=== PATIENT | female | born 1990 | race Caucasian/White ===

== ENCOUNTER 2017-07-24 15:02 | Outpatient (CLI) | payer OTHER ==
[2017-07-24 16:14] LABS: Appearance,Urine Clear (Clear); Bacteria,Urine Rare /hpf; Bilirubin,Urine Negative (Negative); Blood,Urine Trace (Negative); Color,Urine Yellow; Glucose,Urine (UA) Negative (Negative); Ketones,Urine Negative (Negative); Leukocyte Esterase,Urine Moderate (Negative); Mucus,Urine Few /hpf; Nitrite,Urine Negative (Negative); PH, Urine 5.5 (5.0-8.0); Protein,Urine Negative (Negative); RBC,Urine 2 /hpf (0-5); Specific Gravity,Urine 1.015 (1.001-1.035); Squamous Epithelial Cell,Urine 1 /hpf (0-4); Urobilinogen,Urine <2.0 mg/dL (<2.0); WBC,Urine 3 /hpf (0-5)
[2017-07-24 16:51] LABS: Basophils % (A) 0 %; Eosinophils # (A) 0.1 k/uL (0-0.7); Eosinophils % (A) 1 %; HCT 32.3 % (34.0-46.0); HGB 10.7 gm/dL (11.4-16.0); Lymphocytes # (A) 1.4 k/uL (1.0-4.8); Lymphocytes % (A) 18 %; MCH 30.9 pg (25.0-35.0); MCHC 33.1 g/dL (31.0-37.0); MCV 93.3 fL (80.0-100.0); Mean Platelet Volume 7.2; Monocytes # (A) 0.5 k/uL (0-1.0); Monocytes % (A) 6 %; Neutrophils # (A) 5.9 k/uL (1.3-7.7); Neutrophils % (A) 74 %; Platelet Count 238 k/uL (150-450); RBC 3.46 m/uL (3.80-5.40); RDW 13.7 % (11.5-15.5)
[2017-07-24 17:00] VITALS: BP 120/66; PULSE 104; RESP 18; TEMP 98.8
--- NOTE | 2017-07-24 17:00 | US ---
EXAMINATION TYPE: US OB >= 14 wk fetus DATE OF EXAM: 07/24/2017 COMPARISON: None CLINICAL HISTORY: no care No care, pt states vaginal bleeding on/off during pregnan cy, unsure of dates TECHNIQUE: Transabdominal (TA) GESTATIONAL AGE / DATING Physician Established: (29 weeks/6 days) EDC: 10/03/2017 Dates by LMP: Unknown Dates by First Scan: No prior Dates by Current Scan: (30 weeks/6 days) EDC: 09/26/2017 SURVEY IUP: Single PLACENTA: Anterior PREVIA: No Previa BRENNEN: 13.6 cm Normal CERVICAL LENGTH (transabdominal: norm > 3.0cm): 2.4 cm, TV not needed at this time per RN during exam BIOMETRY PRESENTATION: Vertex BPD: 8.1 cm 32 weeks / 3 days HC: 29.5 cm 32 weeks / 4 days AC: 26.4 cm 30 weeks / 4 days FL: 5.8 cm 30 weeks / 1 days ESTIMATED WEIGHT IN GRAMS: 1635 grams ESTIMATED WEIGHT IN LBS/OZ: 3 lbs. 10 oz. WEIGHT PERCENTAGE BASED ON ESTABLISHED DATES: 70% HC/AC: 1.12 Normal FL/AC: 22 Normal HEART RATE: 152 bpm RHYTHM: Normal Single, viable IUP/ Cervix measurement short, TV supplement not needed at this time per RN/ Incidenta l finding of dilated lateral ventricles during exam Results given to L&D at time of exam Single live intrauterine gestation is identified. There is no ultrasound evidence for placenta previa . Normal cephalad presentation to fetus is currently seen. Prominence of lateral ventricles is noted. Amniotic fluid index is within normal limits. Shortened cervix is present. biometry measuremen ts are concordant and felt within normal limits for early to mid third trimester gestation. IMPRESSION: As above
[2017-07-24 18:09] LABS: Amphetamine Screen,Urine Not Detected (NotDetected); Barbiturate Screen,Urine Not Detected (NotDetected); Benzodiazepines Screen,Urine Not Detected (NotDetected); Cocaine Screen,Urine Not Detected (NotDetected); Methadone Screen, Urine Not Detected (NotDetected); Opiate Screen,Urine Not Detected (NotDetected); Oxycodone Screen, Urine Not Detected (NotDetected); Phencyclidine Screen,Urine Not Detected (NotDetected); Tricyclic Antidepressant,Urine Not Detected (NotDetected); Urn Cannabinoid Scrn Not Detected (NotDetected)
--- NOTE | 2017-08-04 03:12 | P.MSEPDOC ---
Presenting Problems - Arrival Data Date of Arrival on Unit: 07/24/17 Time of Arrival on Unit: 15:15 Mode of Transport: Stretcher - Complaint OB-Reason for Admission/Chief Complaint: Observation/Evaluation Comment: Shortness of breath, bladder spasms Medical History - Information : 2 Para: 1 Term: 1 : 0 Abortions: Spontaneous or Elective: 0 Number of Living Children: 1 - Gestational Age Gestational Age by WILLA (wks/days): 29 Weeks and 6 Days - History Complications: No Care Review of Systems - Review of Systems Constitutional: No problems Breast: No problems ENT: No problems Cardiovascular: No problems Respiratory: No problems Gastrointestinal: No problems Genitourinary: No problems Musculoskeletal: No problems Neurological: No problems Skin: No problems Vital Signs - Temperature Temperature: 98.8 F Temperature Source: Temporal Artery Scan - Pulse Right Brachial Pulse Rate: 104 Pulse Assessment Method: Automatic Cuff - Respirations Respiratory Rate: 18 Oxygen Delivery Method: Room Air O2 Sat by Pulse Oximetry: 97 - Blood Pressure Right Arm Blood Pressure: 120/66 Blood Pressure Mean: 84 Blood Pressure Source: Automatic Cuff Medical Screen Scoring (Pre) - Cervical Exam Dilation: 0 cm = 0 Membranes: Intact - Uterine Contractions Frequency: N/A Duration: N/A Intensity: N/A - Maternal Vital Signs Maternal Temperature: N/A Maternal Blood Pressure: N/A Signs of Preeclampsia: N/A Maternal Respirations: N/A - Assessment Baseline FHR: 150 Heart Rate - NICHD Category: Category I (Normal) = 0 NST: Reactive Position: N/A Station: N/A - Total Score Total Score (Pre): 0 - Level of Risk Level of Risk: Low (0-5) Physician Notification (Pre) - Physician Notified Physician Notified Date: 07/24/17 Physician Notified Time: 15:15 Physician/Practitioner Notifed:: Dr. Plaza Spoke With: Dr. Plaza New Order Received: Yes Medical Screen Scoring (Post) - Cervical Exam Dilation: Exam Deferred Effacement: Exam Deferred - Uterine Contractions Frequency: N/A Duration: N/A Intensity: N/A - Maternal Vital Signs Maternal Temperature: N/A Signs of Preeclampsia: N/A Maternal Respirations: N/A - Maternal Trauma Maternal Trauma: N/A - Assessment Heart Rate: 145 Heart Rate - NICHD Category: Category I (Normal) = 0 NST: Reactive Position: N/A Station: N/A - Total Score Total Score (Post): 0 - Post Treatment Level of Risk Post Treatment Level of Risk: Low (0-5) Physician Notification (Post) - Physician Notified Physician Notified Date: 07/24/17 Physician Notified Time: 17:00 Physician/Practitioner Notified:: Dr. Plaza Spoke With: Dr. Plaza New Order Received: Yes - Notification Comment Comment: D/C home and follow up with high risk clinic in [place] Disposition - Disposition OB Disposition: Discharge to home Discharge Date: 07/24/17 Discharge Time: 17:15 I agree with the RN Medical Screening Exam: Yes Risk & Benefit of care provided described in d/c instruction: Yes Diagnosis: PELVIC AND PERINEAL PAIN
== END 2017-07-24 16:15 | disposition home or self-care (01) ==
LOC: FBPOP 15:02
PROVIDERS: ATTEND Obstetrics & Gynecology
DX: O99.89 Other specified diseases and conditions complicating pregnancy, childbirth and the puerperium (principal); R10.2 Pelvic and perineal pain; R06.02 Shortness of breath; N32.89 Other specified disorders of bladder; Z3A.29 29 weeks gestation of pregnancy
CPT/HCPCS: 59025; 86900; 86901; 85025; 86850; 81001; 80306; 76805; G0463; 99213

== ENCOUNTER 2017-09-27 12:55 | Inpatient (IN) | payer OTHER ==
[2017-09-27] MEDS ORDERED: TERBUTALINE 1 MG/ML VIAL SQ PRN (13:40)
[2017-09-27] MEDS ORDERED: METHYLERGONOVINE 0.2 MG/ML 1 ML AMP IM PRN (13:40)
[2017-09-27] MEDS ORDERED: LIDOCAINE 1% (PF) 10 MG/ML (30 ML SDV) SQ PRN (13:40)
[2017-09-27] MEDS ORDERED: OXYTOCIN 10 UNIT/ML 1 ML VIAL IM PRN (13:40)
[2017-09-27] MEDS ORDERED: CARBOPROST TROMETHAMINE 250 MCG/ML 1 ML AMP IM PRN (13:40)
[2017-09-27] MEDS: LACTATED RINGERS 1,000 ML IV SCH ×2 (13:45→15:32)
[2017-09-27] MEDS ORDERED: BUTORPHANOL 1 MG/ML 1 ML VIAL IV PRN (13:51)
--- NOTE | 2017-09-27 13:58 | P.HPOB ---
History of Present Illness H&P Date: 09/27/17 Chief Complaint: 40 and one sevenths weeks, labor The patient is a 27-year-old 2 para 1001 admitted at 40 and one sevenths weeks as determined by a 29 week ultrasound. She is admitted in early active labor with all signs reassuring. She was checked in the office yesterday which time her cervix is 1-2 cm, thick, high, and posterior. She presents to labor and delivery today with regular contractions every 3-4 minutes and cervical exam showing 37 m of dilation with 60-70% effacement and the vertex in presentation at -1-2 station. She does carry a history of late presentation to our office having had some care in [place] before returning to this area where she had some scattered appointments across [facility] until presentation to our office at 29 weeks. Group B strep status is negative. Obstetrical history: 2 para 1001 with 1 term vaginal delivery without complications. Current statistics are listed above. EDC of 2017 was determined by a 29 week ultrasound. Laboratory workup demonstrates a blood type of O+ with a negative antibody screen. Rubella status is immune. The remainder of the laboratory workup was within normal limits. One hour Glucola was normal and group B strep status is negative. Gynecologic history: Unremarkable with no history of any infections to include STDs. Review of Systems Review of systems is confined to history of present illness. Past Medical History Past Medical History: GERD/Reflux Additional Past Medical History / Comment(s): Obstetric history: This is her first , she's had good care with me since 18 weeks gestation. Her EDC is by a 16 week ultrasound. Blood type was O+, antibodies negative, rubella immune, RPR nonreactive, hepatitis B negative, HIV nonreactive, toxoplasmosis negative. She had normal 1 hour glucose tolerance test. Group beta strep negative. History of Any Multi-Drug Resistant Organisms: None Reported Past Surgical History: No Surgical Hx Reported Past Anesthesia/Blood Transfusion Reactions: No Reported Reaction Smoking Status: Never smoker Medications and Allergies Allergies Allergy/AdvReac Type Severity Reaction Status Date / Time Penicillins Allergy Intermediate Abdominal Verified 09/27/17 13:03 Pain diphenhydramine Allergy Anaphylaxis Verified 09/27/17 13:03 [From Benadryl] loratadine Allergy Rash/Hives Verified 09/27/17 13:03 metronidazole [From Flagyl] Allergy Anaphylaxis Verified 09/27/17 13:03 Exam - Vital Signs Vital signs: Intake and Output 09/26/17 09/27/17 09/27/17 22:59 06:59 14:59 Other: Weight 66.678 kg Patient Weight 09/28/17 06:59 Weight 66.678 kg In general, this is a well-developed, well-nourished white female in no acute distress. Her heart has a regular rhythm and rate without murmur. Her lungs are clear to auscultation bilaterally in all bennett. Her abdomen is gravid, nondistended, has normal active bowel sounds, soft, nontender, and without any palpable masses aside from uterine fundus. Her extremities are without any cyanosis, clubbing, or significant edema and are nontender to palpation bilaterally. Digital cervical examination done traits her cervix to be 3+ centimeters dilated, approximately 60-70% effaced, with the vertex in presentation at -1-2 station. Artificial rupture of membranes will be carried out shortly. Assessment and Plan (1) Normal labor Current Visit: No Status: Acute Code(s): O80 - ENCOUNTER FOR FULL-TERM UNCOMPLICATED DELIVERY SNOMED Code(s): 21757642 Plan: The patient is admitted for active management of labor. She'll shortly undergo artificial rupture of membranes breech she will continue to have close maternal and surveillance and expectant management will be practiced. She is a good candidate for either IV or epidural analgesia, whichever she may choose.
[2017-09-27 14:12] LABS: Basophils % (A) 0 %; Eosinophils # (A) 0.1 k/uL (0-0.7); Eosinophils % (A) 1 %; HGB 12.6 gm/dL (11.4-16.0); Lymphocytes % (A) 18 %; MCH 30.2 pg (25.0-35.0); MCHC 32.4 g/dL (31.0-37.0); MCV 93.3 fL (80.0-100.0); Mean Platelet Volume 7.1; Monocytes # (A) 0.5 k/uL (0-1.0); Monocytes % (A) 5 %; Neutrophils # (A) 8.1 k/uL (1.3-7.7); Neutrophils % (A) 73 %; Platelet Count 256 k/uL (150-450); RBC 4.18 m/uL (3.80-5.40); RDW 14.9 % (11.5-15.5)
[2017-09-27 14:40] VITALS: BMI 25.2
[2017-09-27] MEDS ORDERED: fentaNYL (PF) 50 MCG/ML 5 ML AMP ONE (15:18)
[2017-09-27] MEDS ORDERED: SODIUM CHLORIDE 0.9% 100 ML BAG ONE (15:18)
[2017-09-27] MEDS ORDERED: BUPIVACAINE (PF) 0.25% 30 ML VIAL ONE (15:18)
[2017-09-27] MEDS ORDERED: BUPIVACAINE (PF) 0.25% 25 ML, fentaNYL (PF) 200 MCG in SODIUM CHLORIDE 0.9% 71 ML EPIDURAL ONE (15:34)
[2017-09-27] MEDS ORDERED: OXYTOCIN 20 UNITS/1000 ML NS 1,000 ML IV SCH ×2 (18:41→19:00)
[2017-09-27] MEDS ORDERED: HYDROCORTISONE 2.5% RECTAL CREAM 30 GM TUBE RECTAL PRN (18:49)
[2017-09-27] MEDS ORDERED: LANOLIN CREAM 5 GM TUBE TOPICAL PRN (18:49)
[2017-09-27] MEDS ORDERED: WITCH HAZEL 1 EACH MED..PAD TOPICAL PRN (18:49)
[2017-09-27] MEDS ORDERED: ZOLPIDEM 5 MG TAB PO PRN (18:49)
[2017-09-27] MEDS ORDERED: Acetaminophen-Codeine 300-30mg TAB PO PRN (18:49)
[2017-09-27] MEDS ORDERED: SIMETHICONE 80 MG CHEWABLE PO PRN (18:49)
--- NOTE | 2017-09-27 18:49 | P.PROBDLV ---
Vaginal Delivery Note - . Vaginal Delivery Note: Findings: Male infant in the vertex left occiput anterior position with Apgars of 8 at 1 minute and 9 at 5 minutes weighing 8 lbs. 0 oz., 3625 g. Intact, calcified three-vessel cord placenta. Second-degree midline episiotomy. EBL approximately 200 mL's. Delivery summary: This is a 27-year-old 2 para 1001 woman who presented at 40 and one sevenths weeks gestation in spontaneous active labor. The time of initial presentation she was 3+ centimeters dilated and regularly john paul. She received an epidural anesthetic and had spontaneous rupture of membranes. Well overall her heart tones were reassuring in the first stage she did have an episode of bradycardia immediately following spontaneous rupture. This was managed conservatively. She reached complete cervical dilation by the approximately 1800 and did have urge to push. The 's vertex was in the 1+ station with commencement of pushing. She did have some deep variable heart rate decelerations however maternal effort was excellent and the head descended rapidly. She was therefore repositioned, prepped and draped in the dorsal modified lithotomy position. Reached the heart tones were in the 50-60 bpm therefore a second-degree midline episiotomy was cut and the 's head delivered with the next maternal effort from the left occiput anterior position. The anterior followed by the posterior shoulders were rapidly delivered and the infant was delivered onto the field. The nose and mouth were bulb suctioned and the was placed on the maternal abdomen. The cord was clamped and cut. Apgars were 8 at 1 minute and 9 at 5 minutes. The perineum was inspected and a second-degree laceration was noted. This was infused with lidocaine and repaired with 3-0 Vicryl suture in the usual fashion. The uterus was massaged and an intact, three-vessel cord placenta was expressed after approximately 11 minute third stage of labor. The uterus was massaged and was noted to be very firm at the level of the umbilicus. The rest the vagina and cervix were inspected and no further lacerations were noted. All counts were correct. Both mother and were doing well post delivery in the room.
[2017-09-27] MEDS: IBUPROFEN 600 MG TAB PO PRN (19:30)
[2017-09-27] MEDS: ACETAMINOPHEN TAB 325 MG TAB PO PRN (20:58)
[2017-09-27] MEDS: SENNOSIDES-DOCUSATE SODIUM 1 EACH TAB PO SCH (20:58)
[2017-09-28] MEDS: IBUPROFEN 600 MG TAB PO PRN ×4 (01:26→21:00)
[2017-09-28] MEDS: ACETAMINOPHEN TAB 325 MG TAB PO PRN (02:36)
[2017-09-28] MEDS: SENNOSIDES-DOCUSATE SODIUM 1 EACH TAB PO SCH ×2 (08:12→21:01)
--- NOTE | 2017-09-28 10:41 | P.PNOBGVD ---
Subjective - Subjective Principal diagnosis: Status post vaginal delivery Interval history: Moderate lochia. Ambulating and voiding without difficulty. Tolerating a general diet. Patient reports: Reports appetite normal, Reports voiding normally, Reports pain well controlled, Reports ambulating normally, Denies nauseated [place]: doing well, bottle feeding Objective - Latest Vital Signs Latest vital signs: Vital Signs Temp Pulse Resp BP Pulse Ox 09/28/17 08:00 98.2 F 82 16 106/72 09/28/17 04:00 97.9 F 84 16 101/63 95 09/28/17 00:00 98.3 F 90 16 111/62 95 09/27/17 20:47 98.9 F 87 16 117/71 97 09/27/17 20:17 98.7 F 76 16 119/72 09/27/17 20:00 98.7 F 76 16 119/72 09/27/17 19:47 98.4 F 78 16 120/77 09/27/17 19:32 98.4 F 96 16 125/82 09/27/17 19:17 98.8 F 71 16 122/70 09/27/17 19:02 99.0 F 83 16 131/79 97 09/27/17 18:47 86 16 121/84 09/27/17 13:03 97.3 F L 73 16 125/76 Intake and Output 09/27/17 09/28/17 09/28/17 22:59 06:59 14:59 Intake Total 1000 Balance 1000 Intake: IV 1000 Oxytocin 20 Units/1000 ml 1000 Ns 1,000 ml @ Per Protocol IV .Q0M [facility] Rx#: [id number] Other: Voiding Method Toilet Toilet # Voids 2 1 # Bowel Movements 1 - Exam Extremities: Present: normal. Absent: edema Abdomen: Present: normal appearance, soft. Absent: tenderness Uterus: Present: normal, firm. Absent: tenderness - Labs Labs: Abnormal Lab Results - Last 24 Hours (Table) 09/27/17 Range/Units 14:00 WBC 11.0 H (3.8-10.6) k/uL Neutrophils # 8.1 H (1.3-7.7) k/uL Assessment and Plan (1) Normal labor Current Visit: No Status: Acute Code(s): O80 - ENCOUNTER FOR FULL-TERM UNCOMPLICATED DELIVERY SNOMED Code(s): 95057316 (2) Normal spontaneous vaginal delivery Current Visit: Yes Status: Acute Code(s): O80 - ENCOUNTER FOR FULL-TERM UNCOMPLICATED DELIVERY SNOMED Code(s): 70791904 (3) Perineal laceration with delivery, second degree Current Visit: Yes Status: Acute Code(s): O70.1 - SECOND DEGREE PERINEAL LACERATION DURING DELIVERY SNOMED Code(s): 0697665 (4) Spontaneous onset of labor Current Visit: Yes Status: Acute Code(s): IPA2847 - SNOMED Code(s): 15879956 (5) Spontaneous rupture of membranes Current Visit: Yes Status: Acute Code(s): UJT0539 - SNOMED Code(s): 328432581 Plan: day 1 status post normal spontaneous vaginal delivery. Routine care. Anticipate discharge home tomorrow.
[2017-09-29] MEDS: IBUPROFEN 600 MG TAB PO PRN ×2 (02:08→07:43)
[2017-09-29 08:19] VITALS: BP 119/73; PULSE 78; RESP 16; TEMP 97.7
[2017-09-29] MEDS: SENNOSIDES-DOCUSATE SODIUM 1 EACH TAB PO SCH (09:27)
--- NOTE | 2017-09-29 11:09 | P.DS ---
Providers Date of admission: 09/27/17 13:46 Expected date of discharge: 09/29/17 Attending physician: Demetrio Brennan - Discharge Diagnosis(es) (1) Normal labor Current Visit: No Status: Acute (2) Normal spontaneous vaginal delivery Current Visit: Yes Status: Acute (3) Perineal laceration with delivery, second degree Current Visit: Yes Status: Acute (4) Spontaneous onset of labor Current Visit: Yes Status: Acute (5) Spontaneous rupture of membranes Current Visit: Yes Status: Acute Hospital Course: This is a 27-year-old 2 now para 2 woman who presented at 40 and one sevenths weeks gestation in spontaneous active labor. Following admission she received an epidural anesthetic. She had artificial rupture of membranes. She progressed to complete cervical dilation. In the second stage of labor she had did have deep variable heart rate decelerations and a midline episiotomy was cut at to facilitate more rapid delivery. She was delivered of a liveborn female infant weighing 8 lbs. 0 oz. with Apgars of 8 at 1 minute and 9 at 5 minutes. The patient's course was unremarkable. She chose not to breast-feed. She had normal vital signs, minimal lochia, was able to ambulate and void without difficulty and tolerating a general diet. She was therefore discharged home on day #2 with routine instructions for care and follow-up. Patient Condition at Discharge: Good Plan - Discharge Summary Discharge Rx Participant: Yes New Discharge Prescriptions: New Acetaminophen Tab [Tylenol] 650 mg PO Q4HR PRN #30 tab PRN Reason: Mild Pain Or Fever >= 100.5 Ibuprofen [Motrin] 600 mg PO Q6HR PRN #30 tab PRN Reason: Mild Pain Or Fever >= 100.5 Discharge Medication List Acetaminophen Tab [Tylenol] 650 mg PO Q4HR PRN #30 tab 09/29/17 [Rx] Ibuprofen [Motrin] 600 mg PO Q6HR PRN #30 tab 09/29/17 [Rx] Follow up Appointment(s)/Referral(s): Demetrio Brennan MD [STAFF PHYSICIAN] - 6 Weeks Activity/Diet/Wound Care/Special Instructions: Follow-up in the office in 6 weeks . Call with any concerning signs or symptoms including heavy vaginal bleeding, severe abdominal pain, fever greater than 101, swelling or redness of the lower extremities, foul vaginal discharge, or signs of depression. Nothing in the vagina for 6 weeks after delivery, specifically no intercourse. Discharge Disposition: HOME SELF-CARE
== END 2017-09-29 12:25 | disposition home or self-care (01) | DRG 775 ==
LOC: FBPOP 12:55 → 4FBP 13:46
PROVIDERS: ADMIT Obstetrics & Gynecology; ATTEND Obstetrics & Gynecology
PROC: 10E0XZZ Delivery of Products of Conception, External Approach (ICD-10-PCS; principal; 2017-09-27)
PROC: 0KQM0ZZ Repair Perineum Muscle, Open Approach (ICD-10-PCS; 2017-09-27)
PROC: 0W8NXZZ Division of Female Perineum, External Approach (ICD-10-PCS; 2017-09-27)
DX: O99.62 Diseases of the digestive system complicating childbirth (principal); R00.1 Bradycardia, unspecified; K21.9 Gastro-esophageal reflux disease without esophagitis; O76 Abnormality in fetal heart rate and rhythm complicating labor and delivery; O70.1 Second degree perineal laceration during delivery; O75.89 Other specified complications of labor and delivery; Z37.0 Single live birth; Z3A.40 40 weeks gestation of pregnancy; Z88.1 Allergy status to other antibiotic agents; Z88.0 Allergy status to penicillin; Z88.8 Allergy status to other drugs, medicaments and biological substances
CPT/HCPCS: 59025; 85025; 88307; 99213

== ENCOUNTER 2017-11-05 22:54 | Emergency (ER) | payer OTHER ==
[2017-11-06 00:06] LABS: Appearance,Urine Cloudy (Clear); Bilirubin,Urine 1+ (Negative); Blood,Urine Moderate (Negative); Calcium Oxalate Crystals,Urine Few /hpf; Color,Urine Yellow; Glucose,Urine (UA) Negative (Negative); Ketones,Urine Trace (Negative); Leukocyte Esterase,Urine Large (Negative); Mucus,Urine Many /hpf; Nitrite,Urine Negative (Negative); PH, Urine 5.5 (5.0-8.0); Protein,Urine 1+ (Negative); RBC,Urine 6 /hpf (0-5); Specific Gravity,Urine 1.029 (1.001-1.035); Squamous Epithelial Cell,Urine 12 /hpf (0-4); WBC,Urine 121 /hpf (0-5)
[2017-11-06] MEDS ORDERED: HYDROcodone/APAP 5-325MG 1 EACH TAB PO STA (01:29)
[2017-11-06] MEDS ORDERED: SULFAMETH-TMP DS STARTER PACK 2 TAB BTL PO STA (01:29)
--- NOTE | 2017-11-06 01:34 | ED ---
General Adult HPI - General Chief complaint: Recheck/Abnormal Lab/Rx Stated complaint: Dysuria, vaginal cyst Time Seen by Provider: 11/06/17 00:50 Source: patient, RN notes reviewed Mode of arrival: ambulatory Limitations: no limitations - History of Present Illness Initial comments: 27-year-old female presented emergency from for swelling and possible infection to her right side of her labia. Patient states started approximately week ago. She states is very painful, and drainage. She did have a vaginal delivery 6 weeks ago. She has not follow-up appointment tomorrow. Patient denies any fevers or chills. Patient states that she also has some dysuria. Patient has chronic pain secondary fibromyalgia. Patient denies any nausea vomiting diarrhea constipation. Patient has no upper abdominal pain. She states the vaginal bleeding has stopped from her vaginal delivery. - Related Data Previous Rx's Medication Instructions Recorded Acetaminophen Tab [Tylenol] 650 mg PO Q4HR PRN #30 tab 09/29/17 Ibuprofen [Motrin] 600 mg PO Q6HR PRN #30 tab 09/29/17 Hydrocodone/Acetaminophen [[place] 1 tab PO Q6HR PRN #15 tab 11/06/17 5-325] Sulfamethox-Tmp 800-160Mg [Bactrim 1 each PO Q12HR #20 tab 11/06/17 Ds] Allergies Allergy/AdvReac Type Severity Reaction Status Date / Time Penicillins Allergy Intermediate Abdominal Verified 11/05/17 23:07 Pain diphenhydramine Allergy Anaphylaxis Verified 11/05/17 23:07 [From Benadryl] loratadine Allergy Rash/Hives Verified 11/05/17 23:07 metronidazole [From Flagyl] Allergy Anaphylaxis Verified 11/05/17 23:07 Review of Systems ROS Statement: Those systems with pertinent positive or pertinent negative responses have been documented in the HPI. ROS Other: All systems not noted in ROS Statement are negative. Past Medical History Past Medical History: Fibromyalgia, GERD/Reflux Additional Past Medical History / Comment(s): Obstetric history: This is her first , she's had good care with me since 18 weeks gestation. Her EDC is by a 16 week ultrasound. Blood type was O+, antibodies negative, rubella immune, RPR nonreactive, hepatitis B negative, HIV nonreactive, toxoplasmosis negative. She had normal 1 hour glucose tolerance test. Group beta strep negative. History of Any Multi-Drug Resistant Organisms: None Reported Past Surgical History: No Surgical Hx Reported Past Anesthesia/Blood Transfusion Reactions: No Reported Reaction Past Psychological History: Anxiety Smoking Status: Never smoker Past Alcohol Use History: None Reported Past Drug Use History: None Reported - Past Family History Mother Family Medical History: No Reported History General Exam Limitations: no limitations General appearance: alert, in no apparent distress Head exam: Present: atraumatic, normocephalic, normal inspection Eye exam: Present: normal appearance, PERRL, EOMI. Absent: scleral icterus, conjunctival injection, periorbital swelling Respiratory exam: Present: normal lung sounds bilaterally. Absent: respiratory distress, wheezes, rales, rhonchi, stridor Cardiovascular Exam: Present: regular rate, normal rhythm, normal heart sounds. Absent: systolic murmur, diastolic murmur, rubs, gallop, clicks GI/Abdominal exam: Present: soft, normal bowel sounds. Absent: distended, tenderness, guarding, rebound, rigid External exam: Present: other (Exam performed with Lauren LOPEZ). Absent: normal external exam (Right leg is, swollen, large abscess that is draining at this time tenderness with palpation) Course Vital Signs 11/05/17 23:00 Temperature 98.7 F Pulse Rate 112 H Respiratory 20 Rate Blood Pressure 141/102 O2 Sat by Pulse 97 Oximetry Medical Decision Making - Medical Decision Making 19-year-old female presented from for labial abscess. Patient will be started on Bactrim is currently draining and she has a follow-up appointment with OB/ [employer] tomorrow. Patient was started on Bactrim for UTI and abscess. Return parameters were discussed. - Lab Data Lab Results 11/05/17 Range/Units 23:47 Urine Color Yellow Urine Appearance Cloudy H (Clear) Urine pH 5.5 (5.0-8.0) Ur Specific [place] 1.029 (1.001-1.035) Urine Protein 1+ H (Negative) Urine Glucose (UA) Negative (Negative) Urine Ketones Trace H (Negative) Urine Blood Moderate H (Negative) Urine Nitrite Negative (Negative) Urine Bilirubin 1+ H (Negative) Urine Urobilinogen 3.0 (<2.0) mg/dL Ur Leukocyte Esterase Large H (Negative) Urine RBC 6 H (0-5) /hpf Urine WBC 121 H (0-5) /hpf Ur Squamous Epith Cells 12 H (0-4) /hpf Calcium Oxalate Crystal Few H (None) /hpf Urine Mucus Many H (None) /hpf Disposition Clinical Impression: Labial abscess, UTI (urinary tract infection) Disposition: HOME SELF-CARE Condition: Stable Instructions: Abscess (ED) Additional Instructions: Please return to the Emergency Department if symptoms worsen or any other concerns. Prescriptions: Hydrocodone/Acetaminophen [[place] 5-325] 1 tab PO Q6HR PRN #15 tab PRN Reason: Pain Sulfamethox-Tmp 800-160Mg [Bactrim Ds] 1 each PO Q12HR #20 tab Referrals: Bhumika Marcano MD [Primary Care Provider] - 1-2 days Time of Disposition: 01:33
[2017-11-06 01:45] VITALS: BP 103/50; PULSE 87; RESP 18; TEMP 97.8
== END 2017-11-06 01:44 | disposition home or self-care (01) ==
LOC: EC 22:54
DX: N39.0 Urinary tract infection, site not specified (principal); N76.4 Abscess of vulva; Z88.0 Allergy status to penicillin; Z86.19 Personal history of other infectious and parasitic diseases; Z88.1 Allergy status to other antibiotic agents; Z88.8 Allergy status to other drugs, medicaments and biological substances
CPT/HCPCS: 81001; 87086; 93005; 99283

== ENCOUNTER → 2018-01-15 | Outpatient (CLI) | payer OTHER ==
[2018-01-15 14:20] LABS: Basophils % (A) 0 %; Eosinophils # (A) 0.1 k/uL (0-0.7); Eosinophils % (A) 2 %; HCT 37.5 % (34.0-46.0); HGB 12.5 gm/dL (11.4-16.0); Lymphocytes # (A) 1.8 k/uL (1.0-4.8); Lymphocytes % (A) 33 %; MCH 29.7 pg (25.0-35.0); MCHC 33.4 g/dL (31.0-37.0); MCV 89.1 fL (80.0-100.0); Mean Platelet Volume 6.9; Monocytes # (A) 0.4 k/uL (0-1.0); Monocytes % (A) 7 %; Neutrophils % (A) 55 %; Platelet Count 257 k/uL (150-450); RBC 4.21 m/uL (3.80-5.40); RDW 13.3 % (11.5-15.5); WBC 5.4 k/uL (3.8-10.6)
[2018-01-15 15:01] LABS: ALT 27 U/L (9-52); AST 24 U/L (14-36); Albumin 3.8 g/dL (3.5-5.0); Alkaline Phosphatase 53 U/L (38-126); Anion Gap 9 mmol/L; Blood Urea Nitrogen 13 mg/dL (7-17); Calcium 9.1 mg/dL (8.4-10.2); Carbon Dioxide 26 mmol/L (22-30); Chloride 104 mmol/L (98-107); Cholesterol 151 mg/dL (<200); Glucose 79 mg/dL (74-99); HDL Cholesterol 65 mg/dL (40-60); LDL Cholesterol,Calculated 71 mg/dL (0-99); Sodium 139 mmol/L (137-145); Total Bilirubin 0.4 mg/dL (0.2-1.3); Total Protein 6.5 g/dL (6.3-8.2); Triglycerides 73 mg/dL (<150)
== END | disposition home or self-care (01) ==
LOC: LABWHC1 13:14
PROVIDERS: ATTEND Internal Medicine
DX: Z00.00 Encounter for general adult medical examination without abnormal findings (principal)
CPT/HCPCS: 36415; 80053; 80061; 84443; 85025

== ENCOUNTER 2018-07-21 13:36 | Emergency (ER) | payer OTHER ==
[2018-07-21 14:03] VITALS: PULSE 84; RESP 18; TEMP 98
[2018-07-21] MEDS ORDERED: SODIUM CHLORIDE 0.9% 1,000 ML IV STA (14:25)
--- NOTE | 2018-07-21 14:46 | ED ---
General Adult HPI - General Chief complaint: Recheck/Abnormal Lab/Rx Stated complaint: body pain Time Seen by Provider: 07/21/18 13:45 Source: patient, RN notes reviewed Mode of arrival: ambulatory Limitations: no limitations - History of Present Illness Initial comments: Patient's a 28-year-old female who presents emergency room today by EMS, with multiple complaints. Patient does admit that since September 2017 after giving to her son she's been having multiple problems. She states that she's had some abdominal pains in the upper abdomen area she states that she's had overall weakness. Does admit to some numbness tingling sensation throughout her entire body. Patient also admits to some pain in her lower legs behind both knees. Patient states that all the symptoms been present for months. She states she follow-up the family doctor did not take her seriously. She states she's following up with a new family physician. She states last night before going to bed she was concerned because she felt like she was not going to wake up in the morning. She also admits to cough congestion. Patient states that when she woke up in the morning she was grateful but she called EMS to come here to the emergency room. She states that all the symptoms have been present for multiple months. Denies any specific new issue today. Patient denies any recent fever, chills, shortness of breath, chest pain, back pain, abdominal pain , nausea or vomiting, dysuria or hematuria, constipation or diarrhea, headaches or visual changes, or any other complaints. - Related Data Previous Rx's Medication Instructions Recorded Acetaminophen Tab [Tylenol] 650 mg PO Q4HR PRN #30 tab 09/29/17 Ibuprofen [Motrin] 600 mg PO Q6HR PRN #30 tab 09/29/17 Hydrocodone/Acetaminophen [[place] 1 tab PO Q6HR PRN #15 tab 11/06/17 5-325] Sulfamethox-Tmp 800-160Mg [Bactrim 1 each PO Q12HR #20 tab 11/06/17 Ds] Azithromycin [Zithromax Z-pack] 0 mg PO DIRECTED #6 tab 07/21/18 Allergies Allergy/AdvReac Type Severity Reaction Status Date / Time Penicillins Allergy Intermediate Abdominal Verified 11/05/17 23:07 Pain diphenhydramine Allergy Anaphylaxis Verified 11/05/17 23:07 [From Benadryl] loratadine Allergy Rash/Hives Verified 11/05/17 23:07 metronidazole [From Flagyl] Allergy Anaphylaxis Verified 11/05/17 23:07 Review of Systems ROS Statement: Those systems with pertinent positive or pertinent negative responses have been documented in the HPI. ROS Other: All systems not noted in ROS Statement are negative. Past Medical History Past Medical History: Fibromyalgia, GERD/Reflux, Thyroid Disorder Additional Past Medical History / Comment(s): Obstetric history: This is her first , she's had good care with me since 18 weeks gestation. Her EDC is by a 16 week ultrasound. Blood type was O+, antibodies negative, rubella immune, RPR nonreactive, hepatitis B negative, HIV nonreactive, toxoplasmosis negative. She had normal 1 hour glucose tolerance test. Group beta strep negative. graves disease anemia History of Any Multi-Drug Resistant Organisms: None Reported Past Surgical History: No Surgical Hx Reported Past Anesthesia/Blood Transfusion Reactions: No Reported Reaction Past Psychological History: Anxiety Smoking Status: Never smoker Past Alcohol Use History: None Reported Past Drug Use History: None Reported - Past Family History Mother Family Medical History: No Reported History General Exam Limitations: no limitations Course Vital Signs 07/21/18 13:58 Temperature 98.0 F Pulse Rate 84 Respiratory 18 Rate Blood Pressure 106/64 O2 Sat by Pulse 98 Oximetry EKG Findings - EKG Comments: EKG Findings:: EKG performed at 1440: Shows normal sinus rhythm at 88 bpm. ME interval is 120. QRS 84. QT/QTC 374/452. No acute ST changes. Medical Decision Making - Medical Decision Making Patient reexamined at this time shows no signs of distress. Patient's ultrasound of the legs bilaterally was negative for any evidence of DVT. Patient's labs been reviewed and are unremarkable. Patient does admit that she' s been having symptoms for several months has seen the family doctor. He is trying to follow-up. Patient's chest x-ray was obtained due to recent cough congestion does show possible early pneumonia. Patient will be given dose of antibiotics in the emergency room he continued on treatment at home off oral antibiotic. She is advised follow-up the family doctor the next 2 days. Advised returning if symptoms increase or worsen. - Lab Data Result diagrams: 07/21/18 14:10 07/21/18 14:10 Lab Results 1207/21/18 07/21/18 Range/Units 10:10 10:10 14:10 WBC (3.8-10.6) k/uL RBC (3.80-5.40) m/uL Hgb (11.4-16.0) gm/dL Hct (34.0-46.0) % MCV (80.0-100.0) fL MCH (25.0-35.0) pg MCHC (31.0-37.0) g/dL RDW (11.5-15.5) % Plt Count (150-450) k/uL Neutrophils % % Lymphocytes % % Monocytes % % Eosinophils % % Basophils % % Neutrophils # (1.3-7.7) k/uL Lymphocytes # (1.0-4.8) k/uL Monocytes # (0-1.0) k/uL Eosinophils # (0-0.7) k/uL Basophils # (0-0.2) k/uL Sodium (137-145) mmol/L Potassium (3.5-5.1) mmol/L Chloride (98-107) mmol/L Carbon Dioxide (22-30) mmol/L Anion Gap mmol/L BUN (7-17) mg/dL Creatinine (0.52-1.04) mg/dL Est GFR (CKD-EPI)AfAm (>60 ml/min/1.73 sqM) Est GFR (CKD-EPI)NonAf (>60 ml/min/1.73 sqM) Glucose (74-99) mg/dL Calcium (8.4-10.2) mg/dL Total Bilirubin (0.2-1.3) mg/dL AST (14-36) U/L ALT (9-52) U/L Alkaline Phosphatase (38-126) U/L Total Protein (6.3-8.2) g/dL Albumin (3.5-5.0) g/dL Amylase (30-110) U/L Lipase (23-300) U/L TSH 0.821 (0.465-4.680) mIU/L Urine Color Yellow Urine Appearance Clear (Clear) Urine pH 6.0 (5.0-8.0) Ur Specific [place] 1.021 (1.001-1.035) Urine Protein Trace H (Negative) Urine Glucose (UA) Negative (Negative) Urine Ketones Negative (Negative) Urine Blood Negative (Negative) Urine Nitrite Negative (Negative) Urine Bilirubin Negative (Negative) Urine Urobilinogen <2.0 (<2.0) mg/dL Ur Leukocyte Esterase Trace H (Negative) Urine RBC 1 (0-5) /hpf Urine WBC 2 (0-5) /hpf Ur Squamous Epith Cells 2 (0-4) /hpf Amorphous Sediment Rare H (None) /hpf Hyaline Casts 1 (0-2) /lpf Urine Mucus Many H (None) /hpf Urine HCG, Qual Not Detected (Not Detectd) 07/21/18 07/21/18 Range/Units 14:10 14:10 WBC 4.0 (3.8-10.6) k/uL RBC 4.06 (3.80-5.40) m/uL Hgb 11.8 (11.4-16.0) gm/dL Hct 35.6 (34.0-46.0) % MCV 87.7 (80.0-100.0) fL MCH 29.2 (25.0-35.0) pg MCHC 33.3 (31.0-37.0) g/dL RDW 13.7 (11.5-15.5) % Plt Count 198 (150-450) k/uL Neutrophils % 57 % Lymphocytes % 34 % Monocytes % 5 % Eosinophils % 2 % Basophils % 0 % Neutrophils # 2.3 (1.3-7.7) k/uL Lymphocytes # 1.4 (1.0-4.8) k/uL Monocytes # 0.2 (0-1.0) k/uL Eosinophils # 0.1 (0-0.7) k/uL Basophils # 0.0 (0-0.2) k/uL Sodium 141 (137-145) mmol/L Potassium 3.9 (3.5-5.1) mmol/L Chloride 114 H (98-107) mmol/L Carbon Dioxide 22 (22-30) mmol/L Anion Gap 5 mmol/L BUN 12 (7-17) mg/dL Creatinine 0.67 (0.52-1.04) mg/dL Est GFR (CKD-EPI)AfAm >90 (>60 ml/min/1.73 sqM) Est GFR (CKD-EPI)NonAf >90 (>60 ml/min/1.73 sqM) Glucose 85 (74-99) mg/dL Calcium 8.6 (8.4-10.2) mg/dL Total Bilirubin 0.4 (0.2-1.3) mg/dL AST 18 (14-36) U/L ALT 22 (9-52) U/L Alkaline Phosphatase 47 (38-126) U/L Total Protein 6.5 (6.3-8.2) g/dL Albumin 3.7 (3.5-5.0) g/dL Amylase 69 (30-110) U/L Lipase 75 (23-300) U/L TSH (0.465-4.680) mIU/L Urine Color Urine Appearance (Clear) Urine pH (5.0-8.0) Ur Specific [place] (1.001-1.035) Urine Protein (Negative) Urine Glucose (UA) (Negative) Urine Ketones (Negative) Urine Blood (Negative) Urine Nitrite (Negative) Urine Bilirubin (Negative) Urine Urobilinogen (<2.0) mg/dL Ur Leukocyte Esterase (Negative) Urine RBC (0-5) /hpf Urine WBC (0-5) /hpf Ur Squamous Epith Cells (0-4) /hpf Amorphous Sediment (None) /hpf Hyaline Casts (0-2) /lpf Urine Mucus (None) /hpf Urine HCG, Qual (Not Detectd) Disposition Clinical Impression: CAP (community acquired pneumonia) Disposition: HOME SELF-CARE Condition: Good Instructions: Community Acquired Pneumonia (ED) Additional Instructions: Please use medication as discussed. Please follow-up with family doctor in the next 2 days of symptoms have not improved. Please return to emergency room if the symptoms increase or worsen or for any other concerns. Prescriptions: Azithromycin [Zithromax Z-pack] 0 mg PO DIRECTED #6 tab Is patient prescribed a controlled substance at d/c from ED?: No Referrals: Vicki Simons MD [Primary Care Provider] - 1-2 days Time of Disposition: 17:03
[2018-07-21 14:59] LABS: Basophils % (A) 0 %; Eosinophils # (A) 0.1 k/uL (0-0.7); Eosinophils % (A) 2 %; HCT 35.6 % (34.0-46.0); HGB 11.8 gm/dL (11.4-16.0); Lymphocytes # (A) 1.4 k/uL (1.0-4.8); Lymphocytes % (A) 34 %; MCH 29.2 pg (25.0-35.0); MCHC 33.3 g/dL (31.0-37.0); MCV 87.7 fL (80.0-100.0); Mean Platelet Volume 6.9; Monocytes # (A) 0.2 k/uL (0-1.0); Monocytes % (A) 5 %; Neutrophils # (A) 2.3 k/uL (1.3-7.7); Neutrophils % (A) 57 %; Platelet Count 198 k/uL (150-450); RBC 4.06 m/uL (3.80-5.40); RDW 13.7 % (11.5-15.5)
[2018-07-21 15:06] LABS: ALT 22 U/L (9-52); AST 18 U/L (14-36); Albumin 3.7 g/dL (3.5-5.0); Alkaline Phosphatase 47 U/L (38-126); Amylase 69 U/L (30-110); Anion Gap 5 mmol/L; Blood Urea Nitrogen 12 mg/dL (7-17); Calcium 8.6 mg/dL (8.4-10.2); Carbon Dioxide 22 mmol/L (22-30); Chloride 114 mmol/L (98-107); Glucose 85 mg/dL (74-99); Lipase 75 U/L (23-300); Potassium 3.9 mmol/L (3.5-5.1); Sodium 141 mmol/L (137-145); Total Bilirubin 0.4 mg/dL (0.2-1.3); Total Protein 6.5 g/dL (6.3-8.2)
[2018-07-21 16:02] LABS: Amorphous Sediment,Urine Rare /hpf; Appearance,Urine Clear (Clear); Bilirubin,Urine Negative (Negative); Blood,Urine Negative (Negative); Color,Urine Yellow; Glucose,Urine (UA) Negative (Negative); Hyaline Casts,Urine 1 /lpf (0-2); Ketones,Urine Negative (Negative); Leukocyte Esterase,Urine Trace (Negative); Mucus,Urine Many /hpf; Nitrite,Urine Negative (Negative); Protein,Urine Trace (Negative); RBC,Urine 1 /hpf (0-5); Specific Gravity,Urine 1.021 (1.001-1.035); Squamous Epithelial Cell,Urine 2 /hpf (0-4); Urobilinogen,Urine <2.0 mg/dL (<2.0)
--- NOTE | 2018-07-21 16:05 | US ---
EXAMINATION TYPE: US venous doppler duplex LE BI DATE OF EXAM: 07/21/2018 2:47 PM COMPARISON: NONE CLINICAL HISTORY: 28-year-old female Pain. Leg pain and numbness SIDE PERFORMED: Bilateral TECHNIQUE: The lower extremity deep venous system is examined utilizing real time linear array sonog magno with graded compression, doppler sonography and color-flow sonography. FINDINGS: VESSELS IMAGED: External Iliac Vein (EIV) Common Femoral Vein Deep Femoral Vein Greater Saphenous Vein * Femoral Vein Popliteal Vein Small Saphenous Vein * Proximal Calf Veins (* superficial vessels) Right Leg: Negative for DVT Left Leg: Negative for DVT IMPRESSION: No evidence for DVT within the bilateral lower extremities imaged from the groin to the upper calves.
--- NOTE | 2018-07-21 16:49 | XR ---
EXAMINATION TYPE: XR chest 2V DATE OF EXAM: 07/21/2018 COMPARISON: None HISTORY: 28-year-old female with cough TECHNIQUE: PA and lateral views FINDINGS: The cardiomediastinal silhouette, aorta, and pulmonary vasculature are within normal limits. There is some patchy opacity at the lower right lung. Linear density projecting at the lower left lung suspec t external artifact. No pleural effusion. IMPRESSION: Patchy right basilar opacity on the frontal view. Early developing pneumonia not excluded.
[2018-07-21] MEDS ORDERED: AZITHROMYCIN 500 MG TAB PO STA (17:14)
[2018-07-21 18:12] VITALS: BP 117/71
== END 2018-07-21 18:10 | disposition home or self-care (01) ==
LOC: EC 13:36
DX: J18.9 Pneumonia, unspecified organism (principal); R10.10 Upper abdominal pain, unspecified; R20.0 Anesthesia of skin; Z88.0 Allergy status to penicillin; Z88.8 Allergy status to other drugs, medicaments and biological substances; Z88.1 Allergy status to other antibiotic agents; Z53.8 Procedure and treatment not carried out for other reasons
CPT/HCPCS: 36415; 71046; 80053; 81001; 81025; 82150; 83690; 84443; 85025; 93005; 93970; 96360; 96361; 99285

== ENCOUNTER 2018-12-14 12:39 | Emergency (ER) | payer OTHER ==
[2018-12-14 13:05] VITALS: RESP 18
--- NOTE | 2018-12-14 13:39 | ED ---
Abdominal Pain HPI - General Chief Complaint: Abdominal Pain Stated Complaint: ABDOMINAL PAIN Time Seen by Provider: 12/14/18 13:08 Source: patient Mode of arrival: EMS Limitations: no limitations - History of Present Illness Initial Comments: 28-year-old female presenting for multiple complaints. Patient states she has had extreme anxiety at home she states that her has been away for 3 months he is a light truck driver. She states she is stressed with the kids she is tearful and she is sating these complaints. She states she has increased anxie ty at night occasional sharp pain in the chest she denies this being pleuritic with deep inspiration. Patient denies any shortness of breath or lower extremity swelling. She denies any chest pressure or radiation to the upper extremity knees or jaw pain. Patient denies any diabetes or high blood pressure she denies a family history of premature coronary artery disease. She has a history of CVA, DVT or myocardial infarction. Patient states that she has abdominal pain for months she states that has been increasing the past 2 weeks. She states she was evaluated at [facility] but they did not find anything wrong. Patient states she was also concerned she may be . Patient has a lower abdominal pain she states is mostly in the mid abdomen she denies any radiation of the pain she describes as sharp, cramping at times and she has diarrhea. Patient denies any melena or hematochezia she denies fever chills or night sweats she does vaginal discharge or vaginal bleeding. Last menstrual period was about 3 weeks prior for patient. Remaining review of systems negative. Upon arrival patient appears well - Related Data Previous Rx's Medication Instructions Recorded Acetaminophen Tab [Tylenol] 650 mg PO Q4HR PRN #30 tab 09/29/17 Ibuprofen [Motrin] 600 mg PO Q6HR PRN #30 tab 09/29/17 Hydrocodone/Acetaminophen [[place] 1 tab PO Q6HR PRN #15 tab 11/06/17 5-325] Sulfamethox-Tmp 800-160Mg [Bactrim 1 each PO Q12HR #20 tab 11/06/17 Ds] Azithromycin [Zithromax Z-pack] 0 mg PO DIRECTED #6 tab 07/21/18 Allergies Allergy/AdvReac Type Severity Reaction Status Date / Time Penicillins Allergy Intermediate Abdominal Verified 11/05/17 23:07 Pain diphenhydramine Allergy Anaphylaxis Verified 11/05/17 23:07 [From Benadryl] loratadine Allergy Rash/Hives Verified 11/05/17 23:07 metronidazole [From Flagyl] Allergy Anaphylaxis Verified 11/05/17 23:07 Review of Systems ROS Statement: Those systems with pertinent positive or pertinent negative responses have been documented in the HPI. ROS Other: All systems not noted in ROS Statement are negative. Past Medical History Past Medical History: Fibromyalgia, GERD/Reflux, Thyroid Disorder Additional Past Medical History / Comment(s): Obstetric history: This is her first , she's had good care with me since 18 weeks gestation. Her EDC is by a 16 week ultrasound. Blood type was O+, antibodies negative, rubella immune, RPR nonreactive, hepatitis B negative, HIV nonreactive, toxoplasmosis negative. She had normal 1 hour glucose tolerance test. Group beta strep negative. graves disease anemia History of Any Multi-Drug Resistant Organisms: None Reported Past Surgical History: No Surgical Hx Reported Past Anesthesia/Blood Transfusion Reactions: No Reported Reaction Past Psychological History: Anxiety Smoking Status: Never smoker Past Alcohol Use History: None Reported Past Drug Use History: None Reported - Past Family History Mother Family Medical History: No Reported History General Exam - General Exam Comments Initial Comments: General: The patient is awake and alert, in no distress, and does not appear acutely ill. Eye: Pupils are equal, round and reactive to light, extra-ocular movements are intact. No nystagmus. There is normal conjunctiva bilaterally. No signs of icterus. Ears, nose, mouth and throat: There are moist mucous membranes and no oral lesions. Neck: The neck is supple, there is no tenderness or JVD. Cardiovascular: There is a regular rate and rhythm. No murmur, rub or gallop is appreciated. Respiratory: Lungs are clear to auscultation, respirations are non-labored, breath sounds are equal. No wheezes, stridor, rales, or rhonchi. Gastrointestinal: Soft, non-distended, very mild tenderness to palpation of the mid abdomen to the left of the umbilicus. abdomen without masses or organomegaly noted. There is no rebound or guarding present. No CVA tenderness. Bowel sounds are unremarkable. Musculoskeletal: Normal ROM, no tenderness. Strength 5/5. Sensation intact. Pulses equal bilaterally 2+. Neurological: A&O x 3. CN II-XII intact, There are no obvious motor or sensory deficits. Coordination appears grossly intact. Speech is normal. Skin: Skin is warm and dry and no rashes or lesions are noted. Psychiatric: Cooperative, appropriate mood & affect, normal judgment. Limitations: no limitations Course Vital Signs 12/14/18 12:56 Temperature 99.1 F Pulse Rate 89 Respiratory 18 Rate Blood Pressure 145/87 O2 Sat by Pulse 98 Oximetry Medical Decision Making - Medical Decision Making 28-year-old female presenting for multiple complaints she states she has had sharp pain in the chest occasionally at night on and off for the past 3 months denies current symptoms. In addition she states she presented today for abdominal pain she states she has had this for months however increasing for the past 3 days. She states that is near the left of the umbilicus. On examination there is no rebound tenderness guarding rigidity. There is no signs of peritoneal irritation I do not feel that this is acute abdomen. There is no right lower quadrant tenderness or periumbilical tenderness. Patient appears well no signs of acute distress. Patient has anxiety provides an excellent emergency department. Patient will be getting a ride home she states she did not drive. EKG revealed no acute findings. Troponin negative. Patient has no shortness of breath lungs are clear there is a large swelling no recent travel or recent surgeries no hemoptysis. Patient is not control. She is satt ing at 98% on room air heart rate is 89 bpm and she is less than the age of 49. Perc negative. Upon reevaluation patient states she is feeling better she states she is ready for discharge. Urine will be cultured given it was not a clean catch. No overt signs of infection denies urinary symptoms. Patient was discharged appearing well she is agreeable care plan as well as outpatient follow-up. - Lab Data Result diagrams: 12/14/18 13:49 12/14/18 13:49 Lab Results 12/14/18 12/14/18 12/14/18 Range/Units 13:49 13:49 13:49 WBC 3.7 L (3.8-10.6) k/uL RBC 4.32 (3.80-5.40) m/uL Hgb 12.2 (11.4-16.0) gm/dL Hct 37.6 (34.0-46.0) % MCV 87.1 (80.0-100.0) fL MCH 28.4 (25.0-35.0) pg MCHC 32.6 (31.0-37.0) g/dL RDW 13.5 (11.5-15.5) % Plt Count 221 (150-450) k/uL Neutrophils % 58 % Lymphocytes % 31 % Monocytes % 5 % Eosinophils % 3 % Basophils % 0 % Neutrophils # 2.1 (1.3-7.7) k/uL Lymphocytes # 1.1 (1.0-4.8) k/uL Monocytes # 0.2 (0-1.0) k/uL Eosinophils # 0.1 (0-0.7) k/uL Basophils # 0.0 (0-0.2) k/uL PT (9.0-12.0) sec INR (<1.2) APTT (22.0-30.0) sec Sodium 141 (137-145) mmol/L Potassium 3.7 (3.5-5.1) mmol/L Chloride 111 H (98-107) mmol/L Carbon Dioxide 23 (22-30) mmol/L Anion Gap 7 mmol/L BUN 6 L (7-17) mg/dL Creatinine 0.67 (0.52-1.04) mg/dL Est GFR (CKD-EPI)AfAm >90 (>60 ml/min/1.73 sqM) Est GFR (CKD-EPI)NonAf >90 (>60 ml/min/1.73 sqM) Glucose 82 (74-99) mg/dL Calcium 9.2 (8.4-10.2) mg/dL Total Bilirubin 0.9 (0.2-1.3) mg/dL AST 21 (14-36) U/L ALT 18 (9-52) U/L Alkaline Phosphatase 44 (38-126) U/L Troponin I <0.012 (0.000-0.034) ng/mL Total Protein 6.8 (6.3-8.2) g/dL Albumin 4.0 (3.5-5.0) g/dL Amylase 67 (30-110) U/L Lipase 52 (23-300) U/L Urine Color Urine Appearance (Clear) Urine pH (5.0-8.0) Ur Specific [place] (1.001-1.035) Urine Protein (Negative) Urine Glucose (UA) (Negative) Urine Ketones (Negative) Urine Blood (Negative) Urine Nitrite (Negative) Urine Bilirubin (Negative) Urine Urobilinogen (<2.0) mg/dL Ur Leukocyte Esterase (Negative) Urine RBC (0-5) /hpf Urine WBC (0-5) /hpf Ur Squamous Epith Cells (0-4) /hpf Urine Mucus (None) /hpf Urine HCG, Qual (Not Detectd) 12/14/18 12/14/18 12/14/18 Range/Units 13:49 14:31 14:31 WBC (3.8-10.6) k/uL RBC (3.80-5.40) m/uL Hgb (11.4-16.0) gm/dL Hct (34.0-46.0) % MCV (80.0-100.0) fL MCH (25.0-35.0) pg MCHC (31.0-37.0) g/dL RDW (11.5-15.5) % Plt Count (150-450) k/uL Neutrophils % % Lymphocytes % % Monocytes % % Eosinophils % % Basophils % % Neutrophils # (1.3-7.7) k/uL Lymphocytes # (1.0-4.8) k/uL Monocytes # (0-1.0) k/uL Eosinophils # (0-0.7) k/uL Basophils # (0-0.2) k/uL PT 11.8 (9.0-12.0) sec INR 1.1 (<1.2) APTT 24.8 (22.0-30.0) sec Sodium (137-145) mmol/L Potassium (3.5-5.1) mmol/L Chloride (98-107) mmol/L Carbon Dioxide (22-30) mmol/L Anion Gap mmol/L BUN (7-17) mg/dL Creatinine (0.52-1.04) mg/dL Est GFR (CKD-EPI)AfAm (>60 ml/min/1.73 sqM) Est GFR (CKD-EPI)NonAf (>60 ml/min/1.73 sqM) Glucose (74-99) mg/dL Calcium (8.4-10.2) mg/dL Total Bilirubin (0.2-1.3) mg/dL AST (14-36) U/L ALT (9-52) U/L Alkaline Phosphatase (38-126) U/L Troponin I (0.000-0.034) ng/mL Total Protein (6.3-8.2) g/dL Albumin (3.5-5.0) g/dL Amylase (30-110) U/L Lipase (23-300) U/L Urine Color Yellow Urine Appearance Cloudy H (Clear) Urine pH 7.0 (5.0-8.0) Ur Specific [place] 1.017 (1.001-1.035) Urine Protein Trace H (Negative) Urine Glucose (UA) Negative (Negative) Urine Ketones Negative (Negative) Urine Blood Negative (Negative) Urine Nitrite Negative (Negative) Urine Bilirubin Negative (Negative) Urine Urobilinogen <2.0 (<2.0) mg/dL Ur Leukocyte Esterase Small H (Negative) Urine RBC 1 (0-5) /hpf Urine WBC 3 (0-5) /hpf Ur Squamous Epith Cells 7 H (0-4) /hpf Urine Mucus Many H (None) /hpf Urine HCG, Qual Not Detected (Not Detectd) - EKG Data EKG Comments: Ventricular rate 93 bpm, MA interval 118 ms, QRS duration 80 ms, QT/QTC 356/442 ms. This is normal sinus rhythm normal EKG no ST elevation or depression. Disposition Clinical Impression: Abdominal pain, Atypical chest pain, Anxiety Disposition: HOME SELF-CARE Condition: Good Instructions (If sedation given, give patient instructions): Chest Pain (ED), Abdominal Pain (ED) Additional Instructions: Please use medication as discussed. Please follow-up with family doctor in the next 2 days.. Please return to emergency room if the symptoms increase or worsen or for any other concerns. Is patient prescribed a controlled substance at d/c from ED?: No Referrals: None,Stated [Primary Care Provider] - 1-2 days [facility] - 1-2 days Time of Disposition: 15:38
[2018-12-14] MEDS ORDERED: ALPRAZolam 0.5 MG TAB PO STA (13:53)
[2018-12-14 13:59] LABS: Basophils % (A) 0 %; Eosinophils # (A) 0.1 k/uL (0-0.7); Eosinophils % (A) 3 %; HCT 37.6 % (34.0-46.0); HGB 12.2 gm/dL (11.4-16.0); Lymphocytes # (A) 1.1 k/uL (1.0-4.8); Lymphocytes % (A) 31 %; MCH 28.4 pg (25.0-35.0); MCHC 32.6 g/dL (31.0-37.0); MCV 87.1 fL (80.0-100.0); Mean Platelet Volume 6.6; Monocytes # (A) 0.2 k/uL (0-1.0); Monocytes % (A) 5 %; Neutrophils # (A) 2.1 k/uL (1.3-7.7); Neutrophils % (A) 58 %; Platelet Count 221 k/uL (150-450); RBC 4.32 m/uL (3.80-5.40); RDW 13.5 % (11.5-15.5); WBC 3.7 k/uL (3.8-10.6)
[2018-12-14 14:07] LABS: INR 1.1 (<1.2); Partial Thromboplastin Time 24.8 sec (22.0-30.0); Prothrombin Time 11.8 sec (9.0-12.0)
[2018-12-14 14:08] LABS: ALT 18 U/L (9-52); AST 21 U/L (14-36); Alkaline Phosphatase 44 U/L (38-126); Amylase 67 U/L (30-110); Anion Gap 7 mmol/L; Blood Urea Nitrogen 6 mg/dL (7-17); Calcium 9.2 mg/dL (8.4-10.2); Carbon Dioxide 23 mmol/L (22-30); Chloride 111 mmol/L (98-107); Glucose 82 mg/dL (74-99); Lipase 52 U/L (23-300); Potassium 3.7 mmol/L (3.5-5.1); Sodium 141 mmol/L (137-145); Total Bilirubin 0.9 mg/dL (0.2-1.3); Total Protein 6.8 g/dL (6.3-8.2)
[2018-12-14] MEDS ORDERED: SODIUM CHLORIDE 0.9% 500 ML 500 ML IV ONE (14:29)
[2018-12-14 14:41] LABS: Appearance,Urine Cloudy (Clear); Bilirubin,Urine Negative (Negative); Blood,Urine Negative (Negative); Color,Urine Yellow; Glucose,Urine (UA) Negative (Negative); Ketones,Urine Negative (Negative); Leukocyte Esterase,Urine Small (Negative); Mucus,Urine Many /hpf; Nitrite,Urine Negative (Negative); Protein,Urine Trace (Negative); RBC,Urine 1 /hpf (0-5); Specific Gravity,Urine 1.017 (1.001-1.035); Squamous Epithelial Cell,Urine 7 /hpf (0-4); Urobilinogen,Urine <2.0 mg/dL (<2.0); WBC,Urine 3 /hpf (0-5)
--- NOTE | 2018-12-14 15:26 | XR ---
EXAMINATION TYPE: XR KUB DATE OF EXAM: 12/14/2018 2:51 PM CLINICAL HISTORY: Abdominal pain TECHNIQUE: Single supine KUB image of the abdomen is obtained. COMPARISON: None. FINDINGS: Scattered gas is seen in non-distended small bowel loops. Gas and fecal material is seen in non-distended colon. There is no visceromegaly, pneumoperitoneum, or abnormal calcification apprecia lavern. The lung bases are clear and the osseous structures are intact. IMPRESSION: No acute process is evident.
[2018-12-14 16:01] VITALS: BP 125/90; PULSE 83; TEMP 98.9
== END 2018-12-14 15:58 | disposition home or self-care (01) ==
LOC: EC 12:39
DX: R07.89 Other chest pain (principal); R10.9 Unspecified abdominal pain; F41.9 Anxiety disorder, unspecified; Z88.0 Allergy status to penicillin; Z88.1 Allergy status to other antibiotic agents; Z88.8 Allergy status to other drugs, medicaments and biological substances
CPT/HCPCS: 36415; 74018; 80053; 81001; 81025; 82150; 83690; 84484; 85025; 85610; 85730; 87086; 93005; 99284

== ENCOUNTER 2019-04-19 17:05 | Emergency (ER) | payer OTHER ==
[2019-04-19] MEDS ORDERED: KETOROLAC 30 MG/ML 1 ML VIAL IVP STA (17:35)
[2019-04-19] MEDS ORDERED: SODIUM CHLORIDE 0.9% 1,000 ML IV STA (17:35)
[2019-04-19] MEDS ORDERED: ONDANSETRON 4 MG/2 ML VIAL IVP STA (17:35)
[2019-04-19] MEDS ORDERED: PANTOPRAZOLE 40 MG/10 ML VIAL IVP STA (17:35)
--- NOTE | 2019-04-19 17:36 | ED ---
Abdominal Pain HPI - General Chief Complaint: Abdominal Pain Stated Complaint: Abd Pain Time Seen by Provider: 04/19/19 17:25 Source: patient, RN notes reviewed, old records reviewed Mode of arrival: ambulatory Limitations: no limitations - History of Present Illness Initial Comments: This is a 28-year-old female the ER for evaluation. Patient is today for evaluation regarding abdominal pain increase in urination decrease in bowel movements decreased appetite. Patient does have history of kidney stones states this pain is different than prior kidney stones. No other modifying factors at home for pain no fevers. Pain is been going on for months no prior evaluation. Patient states her pain is periumbilical and 7 on her periumbilical suprapubic area. Denies again any fevers. Mild nausea no vomiting. Loose stools with no diarrhea, no antibiotic use recently MD Complaint: abdominal pain -: month(s) Location: periumbilical, epigastric Radiation: epigastric Migration to: epigastric, suprapubic Severity: moderate Severity scale (1-10): 7 Quality: cramping, aching Consistency: intermittent Improves With: nothing Worsens With: nothing Associated Symptoms: nausea - Related Data Home Medications Medication Instructions Recorded Confirmed No Known Home Medications 04/19/19 04/19/19 Allergies Allergy/AdvReac Type Severity Reaction Status Date / Time Penicillins Allergy Intermediate Abdominal Verified 04/19/19 18:19 Pain diphenhydramine Allergy Anaphylaxis Verified 04/19/19 18:19 [From Benadryl] loratadine Allergy Rash/Hives Verified 04/19/19 18:19 metronidazole [From Flagyl] Allergy Anaphylaxis Verified 04/19/19 18:19 Review of Systems ROS Statement: Those systems with pertinent positive or pertinent negative responses have been documented in the HPI. ROS Other: All systems not noted in ROS Statement are negative. Past Medical History Past Medical History: Fibromyalgia, GERD/Reflux, Thyroid Disorder Additional Past Medical History / Comment(s): Obstetric history: This is her first , she's had good care with me since 18 weeks gestation. Her EDC is by a 16 week ultrasound. Blood type was O+, antibodies negative, rubella immune, RPR nonreactive, hepatitis B negative, HIV nonreactive, toxoplasmosis negative. She had normal 1 hour glucose tolerance test. Group beta strep negative. graves disease anemia History of Any Multi-Drug Resistant Organisms: None Reported Past Surgical History: No Surgical Hx Reported Past Anesthesia/Blood Transfusion Reactions: No Reported Reaction Past Psychological History: Anxiety Smoking Status: Never smoker Past Alcohol Use History: None Reported Past Drug Use History: None Reported - Past Family History Mother Family Medical History: No Reported History General Exam Limitations: no limitations General appearance: alert, in no apparent distress Head exam: Present: atraumatic, normocephalic, normal inspection Eye exam: Present: normal appearance, PERRL, EOMI. Absent: scleral icterus, con junctival injection, periorbital swelling ENT exam: Present: normal exam, mucous membranes moist Neck exam: Present: normal inspection. Absent: tenderness, meningismus, lymphadenopathy Respiratory exam: Present: normal lung sounds bilaterally. Absent: respiratory distress, wheezes, rales, rhonchi, stridor Cardiovascular Exam: Present: regular rate, normal rhythm, normal heart sounds. Absent: systolic murmur, diastolic murmur, rubs, gallop, clicks GI/Abdominal exam: Present: soft, normal bowel sounds. Absent: distended, tenderness, guarding, rebound, rigid Extremities exam: Present: normal inspection, full ROM, normal capillary refill. Absent: tenderness, pedal edema, joint swelling, calf tenderness Back exam: Present: normal inspection Neurological exam: Present: alert, oriented X3, CN II-XII intact Psychiatric exam: Present: normal affect, normal mood Skin exam: Present: warm, dry, intact, normal color. Absent: rash Course Vital Signs 04/19/19 17:16 Temperature 98.0 F Pulse Rate 85 Respiratory 16 Rate Blood Pressure 119/84 O2 Sat by Pulse 98 Oximetry - Reevaluation(s) Reevaluation #1: 04/19/19 17:56 Medical records reviewed Reevaluation #2: 04/19/19 18:56 Patient is improved Medical Decision Making - Medical Decision Making 28 female the ER with abdominal pain. Nonspecific. X-rays negative labwork normal. Urine is negative. Patient can be discharged home - Lab Data Result diagrams: 04/19/19 18:04 04/19/19 18:04 Lab Results 04/19/19 04/19/19 04/19/19 Range/Units 18:04 18:04 18:04 WBC 6.9 (3.8-10.6) k/uL RBC 4.16 (3.80-5.40) m/uL Hgb 10.5 L (11.4-16.0) gm/dL Hct 35.5 (34.0-46.0) % MCV 85.2 (80.0-100.0) fL MCH 25.3 (25.0-35.0) pg MCHC 29.7 L (31.0-37.0) g/dL RDW 14.3 (11.5-15.5) % Plt Count 264 (150-450) k/uL Neutrophils % 70 % Lymphocytes % 22 % Monocytes % 5 % Eosinophils % 2 % Basophils % 0 % Neutrophils # 4.8 (1.3-7.7) k/uL Lymphocytes # 1.5 (1.0-4.8) k/uL Monocytes # 0.4 (0-1.0) k/uL Eosinophils # 0.1 (0-0.7) k/uL Basophils # 0.0 (0-0.2) k/uL Sodium 141 (137-145) mmol/L Potassium 4.3 (3.5-5.1) mmol/L Chloride 110 H (98-107) mmol/L Carbon Dioxide 23 (22-30) mmol/L Anion Gap 8 mmol/L BUN 12 (7-17) mg/dL Creatinine 0.86 (0.52-1.04) mg/dL Est GFR (CKD-EPI)AfAm >90 (>60 ml/min/1.73 sqM) Est GFR (CKD-EPI)NonAf >90 (>60 ml/min/1.73 sqM) Glucose 87 (74-99) mg/dL Calcium 9.2 (8.4-10.2) mg/dL Phosphorus 3.7 (2.5-4.5) mg/dL Magnesium 1.9 (1.6-2.3) mg/dL Total Bilirubin 0.5 (0.2-1.3) mg/dL AST 28 (14-36) U/L ALT 14 (9-52) U/L Alkaline Phosphatase 59 (38-126) U/L Total Protein 7.0 (6.3-8.2) g/dL Albumin 3.9 (3.5-5.0) g/dL Amylase 88 (30-110) U/L Lipase 86 (23-300) U/L Urine Color Light Yellow Urine Appearance Clear (Clear) Urine pH 5.5 (5.0-8.0) Ur Specific [place] 1.013 (1.001-1.035) Urine Protein Negative (Negative) Urine Glucose (UA) Negative (Negative) Urine Ketones Negative (Negative) Urine Blood Trace H (Negative) Urine Nitrite Negative (Negative) Urine Bilirubin Negative (Negative) Urine Urobilinogen <2.0 (<2.0) mg/dL Ur Leukocyte Esterase Moderate H (Negative) Urine RBC 1 (0-5) /hpf Urine WBC 2 (0-5) /hpf Ur Squamous Epith Cells <1 (0-4) /hpf Urine Mucus Rare H (None) /hpf Urine HCG, Qual (Not Detectd) 04/19/19 Range/Units 18:04 WBC (3.8-10.6) k/uL RBC (3.80-5.40) m/uL Hgb (11.4-16.0) gm/dL Hct (34.0-46.0) % MCV (80.0-100.0) fL MCH (25.0-35.0) pg MCHC (31.0-37.0) g/dL RDW (11.5-15.5) % Plt Count (150-450) k/uL Neutrophils % % Lymphocytes % % Monocytes % % Eosinophils % % Basophils % % Neutrophils # (1.3-7.7) k/uL Lymphocytes # (1.0-4.8) k/uL Monocytes # (0-1.0) k/uL Eosinophils # (0-0.7) k/uL Basophils # (0-0.2) k/uL Sodium (137-145) mmol/L Potassium (3.5-5.1) mmol/L Chloride (98-107) mmol/L Carbon Dioxide (22-30) mmol/L Anion Gap mmol/L BUN (7-17) mg/dL Creatinine (0.52-1.04) mg/dL Est GFR (CKD-EPI)AfAm (>60 ml/min/1.73 sqM) Est GFR (CKD-EPI)NonAf (>60 ml/min/1.73 sqM) Glucose (74-99) mg/dL Calcium (8.4-10.2) mg/dL Phosphorus (2.5-4.5) mg/dL Magnesium (1.6-2.3) mg/dL Total Bilirubin (0.2-1.3) mg/dL AST (14-36) U/L ALT (9-52) U/L Alkaline Phosphatase (38-126) U/L Total Protein (6.3-8.2) g/dL Albumin (3.5-5.0) g/dL Amylase (30-110) U/L Lipase (23-300) U/L Urine Color Urine Appearance (Clear) Urine pH (5.0-8.0) Ur Specific [place] (1.001-1.035) Urine Protein (Negative) Urine Glucose (UA) (Negative) Urine Ketones (Negative) Urine Blood (Negative) Urine Nitrite (Negative) Urine Bilirubin (Negative) Urine Urobilinogen (<2.0) mg/dL Ur Leukocyte Esterase (Negative) Urine RBC (0-5) /hpf Urine WBC (0-5) /hpf Ur Squamous Epith Cells (0-4) /hpf Urine Mucus (None) /hpf Urine HCG, Qual Not Detected (Not Detectd) - Radiology Data Radiology results: report reviewed (X-ray KUB is negative for acute disease), image reviewed Disposition Clinical Impression: Abdominal pain Disposition: HOME SELF-CARE Condition: Good Instructions (If sedation given, give patient instructions): Abdominal Pain (ED) Is patient prescribed a controlled substance at d/c from ED?: No Referrals: None,Stated [Primary Care Provider] - 1-2 days
[2019-04-19 18:21] LABS: Basophils % (A) 0 %; Eosinophils # (A) 0.1 k/uL (0-0.7); Eosinophils % (A) 2 %; HCT 35.5 % (34.0-46.0); HGB 10.5 gm/dL (11.4-16.0); Lymphocytes # (A) 1.5 k/uL (1.0-4.8); Lymphocytes % (A) 22 %; MCH 25.3 pg (25.0-35.0); MCHC 29.7 g/dL (31.0-37.0); MCV 85.2 fL (80.0-100.0); Monocytes # (A) 0.4 k/uL (0-1.0); Monocytes % (A) 5 %; Neutrophils # (A) 4.8 k/uL (1.3-7.7); Neutrophils % (A) 70 %; Platelet Count 264 k/uL (150-450); RBC 4.16 m/uL (3.80-5.40); RDW 14.3 % (11.5-15.5); WBC 6.9 k/uL (3.8-10.6)
[2019-04-19 18:22] LABS: Appearance,Urine Clear (Clear); Bilirubin,Urine Negative (Negative); Blood,Urine Trace (Negative); Color,Urine Light Yellow; Glucose,Urine (UA) Negative (Negative); Ketones,Urine Negative (Negative); Leukocyte Esterase,Urine Moderate (Negative); Mucus,Urine Rare /hpf; Nitrite,Urine Negative (Negative); PH, Urine 5.5 (5.0-8.0); Protein,Urine Negative (Negative); RBC,Urine 1 /hpf (0-5); Specific Gravity,Urine 1.013 (1.001-1.035); Squamous Epithelial Cell,Urine <1 /hpf (0-4); Urobilinogen,Urine <2.0 mg/dL (<2.0); WBC,Urine 2 /hpf (0-5)
[2019-04-19 18:37] LABS: ALT 14 U/L (9-52); AST 28 U/L (14-36); African American GFR (CKD) >90 (>60 ml/min/1.73 sqM); Albumin 3.9 g/dL (3.5-5.0); Alkaline Phosphatase 59 U/L (38-126); Amylase 88 U/L (30-110); Anion Gap 8 mmol/L; Blood Urea Nitrogen 12 mg/dL (7-17); Calcium 9.2 mg/dL (8.4-10.2); Carbon Dioxide 23 mmol/L (22-30); Chloride 110 mmol/L (98-107); Glucose 87 mg/dL (74-99); Magnesium 1.9 mg/dL (1.6-2.3); Phosphorus 3.7 mg/dL (2.5-4.5); Potassium 4.3 mmol/L (3.5-5.1); Sodium 141 mmol/L (137-145); Total Bilirubin 0.5 mg/dL (0.2-1.3)
--- NOTE | 2019-04-19 18:52 | XR ---
EXAMINATION TYPE: XR KUB DATE OF EXAM: 04/19/2019 COMPARISON: 12/14/2018 HISTORY: Abdominal pain TECHNIQUE: 2 views upright FINDINGS: There is no sign of intestinal obstruction or pneumoperitoneum. Fecal pattern is normal. Nery ng bases are clear. There are no pathologic calcifications over the kidneys. IMPRESSION: Nonacute abdomen. No change.
[2019-04-19 19:47] VITALS: BP 101/62; PULSE 69; RESP 18; TEMP 98.2
[2019-04-20 14:37] LABS: C. trachomatis,PCR Negative (Neg,Equiv); Chlamydia trachomatis Source Urine
[2019-04-20 14:38] LABS: N. gonorrhoeae,PCR Negative (Neg,Equiv); Neisseria Source Urine
== END 2019-04-19 19:46 | disposition home or self-care (01) ==
LOC: EC 17:05
DX: R10.13 Epigastric pain (principal); R10.33 Periumbilical pain; R11.0 Nausea; R35.0 Frequency of micturition; Z21 Asymptomatic human immunodeficiency virus [HIV] infection status; Z88.0 Allergy status to penicillin; Z88.1 Allergy status to other antibiotic agents; Z88.8 Allergy status to other drugs, medicaments and biological substances
CPT/HCPCS: 36415; 80053; 82150; 83690; 83735; 84100; 85025; 81001; 81025; 87491; 87591; 74018; 99284; 96374; 96375 ×2; 96361; J2405; J1885; C9113

== ENCOUNTER 2019-05-05 14:58 | Emergency (ER) | payer OTHER ==
[2019-05-05 15:04] VITALS: BP 113/58; PULSE 88; RESP 20; TEMP 97.8
--- NOTE | 2019-05-05 15:33 | ED ---
URI HPI - General Chief Complaint: Upper Respiratory Infection Stated Complaint: cough/congestion Time Seen by Provider: 05/05/19 15:08 Source: patient Mode of arrival: ambulatory Limitations: no limitations - History of Present Illness Initial Comments: Patient is a 29-year-old female presenting to emergency Department with complaints of cough and chest congestion 1 week. Patient states she has a history of pneumonia. Patient denies any fever, chills. Patient states she is coughing up clear sputum. Patient denies any chest pain, shortness of breath. Patient states she started getting sick approximately one week ago when her kids started having upper respiratory symptoms as well. Patient denies abdominal pain, nausea, vomiting, diarrhea. Patient has no other complaints at this time. Upon arrival to ER, vital signs are stable. - Related Data Previous Rx's Medication Instructions Recorded Albuterol Sulfate [Proair Hfa] 1 - 2 puff INHALATION Q4HR PRN #1 05/05/19 inhaler methylPREDNISolone [Medrol Dose 4 mg PO DIRECTED #1 pack 05/05/19 Pack] Allergies Allergy/AdvReac Type Severity Reaction Status Date / Time Penicillins Allergy Intermediate Abdominal Verified 05/05/19 15:03 Pain diphenhydramine Allergy Anaphylaxis Verified 05/05/19 15:03 [From Benadryl] loratadine Allergy Rash/Hives Verified 05/05/19 15:03 metronidazole [From Flagyl] Allergy Anaphylaxis Verified 05/05/19 15:03 Review of Systems ROS Statement: Those systems with pertinent positive or pertinent negative responses have been documented in the HPI. ROS Other: All systems not noted in ROS Statement are negative. Past Medical History Past Medical History: Fibromyalgia, GERD/Reflux, Thyroid Disorder Additional Past Medical History / Comment(s): Obstetric history: This is her first , she's had good care with me since 18 weeks gestation. Her EDC is by a 16 week ultrasound. Blood type was O+, antibodies negative, rubella immune, RPR nonreactive, hepatitis B negative, HIV nonreactive, toxoplasmosis negative. She had normal 1 hour glucose tolerance test. Group beta strep negative. graves disease anemia History of Any Multi-Drug Resistant Organisms: None Reported Past Surgical History: No Surgical Hx Reported Past Anesthesia/Blood Transfusion Reactions: No Reported Reaction Past Psychological History: Anxiety Smoking Status: Never smoker Past Alcohol Use History: None Reported Past Drug Use History: None Reported - Past Family History Mother Family Medical History: No Reported History General Exam - General Exam Comments Initial Comments: GENERAL: Well-appearing, well-nourished and in no acute distress. HEAD: Atraumatic, normocephalic. EYES: Pupils equal round and reactive to light, extraocular movements intact, sclera anicteric, conjunctiva are normal. ENT: TMs normal, nares patent, oropharynx clear without exudates. Moist mucous membranes. NECK: Normal range of motion, supple without lymphadenopathy or JVD. LUNGS: Breath sounds clear to auscultation bilaterally and equal. No wheezes rales or rhonchi. HEART: Regular rate and rhythm without murmurs, rubs or gallops. ABDOMEN: Soft, nontender, normoactive bowel sounds. No guarding, no rebound. No masses appreciated. : Deferred EXTREMITIES: Normal range of motion, no pitting or edema. No clubbing or cyanosis. NEUROLOGICAL: Cranial nerves II through XII grossly intact. Normal speech, normal gait. PSYCH: Normal mood, normal affect. SKIN: Warm, Dry, normal turgor, no rashes or lesions noted. Limitations: no limitations Course Vital Signs 05/05/19 15:01 Temperature 97.8 F Pulse Rate 88 Respiratory 20 Rate Blood Pressure 113/58 O2 Sat by Pulse 99 Oximetry Medical Decision Making - Medical Decision Making Patient is a 29-year-old female presenting with cough and chest congestion 1 week. Patient's exam is unremarkable. Chest x-ray shows no acute abnormalities. Patient will be treated for bronchitis given steroids and an inhaler. Patient will follow up with her PCP next week if symptoms persist. Patient is in agreement with this plan of care. Patient stable for discharge. Return parameters were discussed with the patient and she verbalized understanding. Disposition Clinical Impression: Bronchitis Disposition: HOME SELF-CARE Condition: Stable Instructions (If sedation given, give patient instructions): Acute Bronchitis (ED) Additional Instructions: Please return to the Emergency Department if symptoms worsen or any other concerns. Prescriptions: methylPREDNISolone [Medrol Dose Pack] 4 mg PO DIRECTED #1 pack Albuterol Sulfate [Proair Hfa] 1 - 2 puff INHALATION Q4HR PRN #1 inhaler PRN Reason: Cough Is patient prescribed a controlled substance at d/c from ED?: No Referrals: None,Stated [Primary Care Provider] - 1-2 days
--- NOTE | 2019-05-05 15:40 | XR ---
EXAMINATION TYPE: XR chest 2V DATE OF EXAM: 05/05/2019 COMPARISON: 07/21/2018 HISTORY: 29-year-old female with cough TECHNIQUE: PA and lateral views FINDINGS: The cardiomediastinal silhouette, aorta, and pulmonary vasculature are within normal limits. Lungs an d pleural spaces are clear. IMPRESSION: No acute cardiopulmonary process.
== END 2019-05-05 15:56 | disposition home or self-care (01) ==
LOC: EC 14:58
DX: J40 Bronchitis, not specified as acute or chronic (principal); Z88.0 Allergy status to penicillin; Z88.1 Allergy status to other antibiotic agents; Z88.8 Allergy status to other drugs, medicaments and biological substances; Z87.01 Personal history of pneumonia (recurrent)
CPT/HCPCS: 71046; 99283

== ENCOUNTER 2019-08-24 13:11 | Emergency (ER) | payer OTHER ==
[2019-08-24 13:28] VITALS: TEMP 97.6
[2019-08-24 14:52] LABS: Basophils % (A) 0 %; Eosinophils # (A) 0.1 k/uL (0-0.7); Eosinophils % (A) 1 %; HCT 35.4 % (34.0-46.0); HGB 11.5 gm/dL (11.4-16.0); Lymphocytes # (A) 1.5 k/uL (1.0-4.8); Lymphocytes % (A) 23 %; MCH 28.6 pg (25.0-35.0); MCHC 32.5 g/dL (31.0-37.0); MCV 87.9 fL (80.0-100.0); Mean Platelet Volume 7.5; Monocytes # (A) 0.4 k/uL (0-1.0); Monocytes % (A) 6 %; Neutrophils # (A) 4.3 k/uL (1.3-7.7); Neutrophils % (A) 67 %; Platelet Count 239 k/uL (150-450); RBC 4.03 m/uL (3.80-5.40); RDW 13.9 % (11.5-15.5); WBC 6.4 k/uL (3.8-10.6)
--- NOTE | 2019-08-24 15:00 | ED ---
General Adult HPI - General Chief complaint: Fall Stated complaint: Fell/stomach pain Time Seen by Provider: 08/24/19 13:28 Source: patient, RN notes reviewed, old records reviewed Limitations: no limitations - History of Present Illness Initial comments: 29-year-old male presents today for evaluation for concern for fall 1 week ago on her abdomen and right side. She reports that she tripped one week ago when this occurred. She is worried that she started have some worsening lower abdominal pain and cramping and was ruled concerned that this could've harm her . Patient reports that she is 11 weeks , Patient is a female. She states that she has plans to follow up with Dr. Rivers. She has not seen anybody for this at this time. Reports that she had no vaginal bleeding or discharge.. She denies any changes in urination or bowel habits. She is here with her 2 children, and she also brought to the emergency department to be evaluated for common cold. Patient arrives via EMS. She reports that she is able to ambulate without difficulty. - Related Data Previous Rx's Medication Instructions Recorded Albuterol Sulfate [Proair Hfa] 1 - 2 puff INHALATION Q4HR PRN #1 05/05/19 inhaler methylPREDNISolone [Medrol Dose 4 mg PO DIRECTED #1 pack 05/05/19 Pack] Pnv,Calcium 72/Iron/Folic Acid 1 each PO DAILY #30 tablet 08/24/19 [ Plus Tablet] Gds-[id number] Acid 1 cap PO DAILY #30 cap 08/24/19 [-U Capsule (formulary)] Allergies Allergy/AdvReac Type Severity Reaction Status Date / Time Penicillins Allergy Intermediate Abdominal Verified 08/24/19 13:28 Pain diphenhydramine Allergy Anaphylaxis Verified 08/24/19 13:28 [From Benadryl] loratadine Allergy Rash/Hives Verified 08/24/19 13:28 metronidazole [From Flagyl] Allergy Anaphylaxis Verified 08/24/19 13:28 Review of Systems ROS Statement: Those systems with pertinent positive or pertinent negative responses have been documented in the HPI. ROS Other: All systems not noted in ROS Statement are negative. Past Medical History Past Medical History: Fibromyalgia, GERD/Reflux, Thyroid Disorder Additional Past Medical History / Comment(s): Obstetric history: This is her first , she's had good care with me since 18 weeks gestation. Her EDC is by a 16 week ultrasound. Blood type was O+, antibodies negative, rubella immune, RPR nonreactive, hepatitis B negative, HIV nonreactive, toxoplasmosis negative. She had normal 1 hour glucose tolerance test. Group beta strep negative. graves disease anemia History of Any Multi-Drug Resistant Organisms: None Reported Past Surgical History: No Surgical Hx Reported Past Anesthesia/Blood Transfusion Reactions: No Reported Reaction Past Psychological History: Anxiety Smoking Status: Never smoker Past Alcohol Use History: None Reported Past Drug Use History: None Reported - Past Family History Mother Family Medical History: No Reported History General Exam - General Exam Comments Initial Comments: 29-year-old female. Alert and oriented. Patient appears in no distress. Limitations: no limitations General appearance: alert Head exam: Present: atraumatic, normocephalic, normal inspection Eye exam: Present: normal appearance, PERRL, EOMI. Absent: scleral icterus, conjunctival injection, periorbital swelling ENT exam: Present: normal exam, normal oropharynx, mucous membranes moist Neck exam: Present: normal inspection. Absent: tenderness, meningismus, lymphadenopathy Respiratory exam: Present: normal lung sounds bilaterally. Absent: respiratory distress, wheezes, rales, rhonchi, stridor Cardiovascular Exam: Present: regular rate, normal rhythm, normal heart sounds. Absent: systolic murmur, diastolic murmur, rubs, gallop, clicks GI/Abdominal exam: Present: soft, normal bowel sounds, other (minimal lower abdominal pain). Absent: distended, tenderness, guarding, rebound, rigid Extremities exam: Present: normal inspection, full ROM, normal capillary refill. Absent: tenderness, pedal edema, joint swelling, calf tenderness Back exam: Present: normal inspection Neurological exam: Present: alert, oriented X3, CN II-XII intact Psychiatric exam: Present: normal affect Skin exam: Present: warm, dry, intact, normal color. Absent: rash Course Vital Signs 08/24/19 08/24/19 08/24/19 13:23 13:28 14:28 Temperature 97.6 F Pulse Rate 86 78 72 Respiratory 18 20 20 Rate Blood Pressure 115/74 112/70 115/71 O2 Sat by Pulse 98 98 98 Oximetry 08/24/19 08/24/19 15:28 16:13 Temperature Pulse Rate 73 Respiratory 20 20 Rate Blood Pressure 118/72 O2 Sat by Pulse 98 Oximetry Medical Decision Making - Medical Decision Making 29-year-old female presents today for complaints of right-sided pain after fall 1 week ago. Moving all extremity without difficulty. She states that she felt her abdomen is concerned it was related to . She is 11 weeks this time. No vaginal bleeding or discharge. Ultrasound shows viable IUP measuring 12 weeks. UA shows no signs of infection. Patient is Rh+ and e valuating from previous lab work. Patient advised 5RA she needs to follow-up with primary care doctor. She appears in no distress. I discussed that from her fall on her right sided one week ago did not require any further imaging if she is ambulating well without difficulty. Patient is agreeable to treatment plan will comply. - Lab Data Result diagrams: 08/24/19 14:40 Lab Results 08/24/19 08/24/19 Range/Units 14:40 14:45 WBC 6.4 (3.8-10.6) k/uL RBC 4.03 (3.80-5.40) m/uL Hgb 11.5 (11.4-16.0) gm/dL Hct 35.4 (34.0-46.0) % MCV 87.9 (80.0-100.0) fL MCH 28.6 (25.0-35.0) pg MCHC 32.5 (31.0-37.0) g/dL RDW 13.9 (11.5-15.5) % Plt Count 239 (150-450) k/uL Neutrophils % 67 % Lymphocytes % 23 % Monocytes % 6 % Eosinophils % 1 % Basophils % 0 % Neutrophils # 4.3 (1.3-7.7) k/uL Lymphocytes # 1.5 (1.0-4.8) k/uL Monocytes # 0.4 (0-1.0) k/uL Eosinophils # 0.1 (0-0.7) k/uL Basophils # 0.0 (0-0.2) k/uL Urine Color Yellow Urine Appearance Clear (Clear) Urine pH 5.5 (5.0-8.0) Ur Specific [place] 1.023 (1.001-1.035) Urine Protein Negative (Negative) Urine Glucose (UA) Negative (Negative) Urine Ketones Negative (Negative) Urine Blood Small H (Negative) Urine Nitrite Negative (Negative) Urine Bilirubin Negative (Negative) Urine Urobilinogen <2.0 (<2.0) mg/dL Ur Leukocyte Esterase Trace H (Negative) Urine RBC 1 (0-5) /hpf Urine WBC 3 (0-5) /hpf Ur Squamous Epith Cells 3 (0-4) /hpf Urine Mucus Few H (None) /hpf - Radiology Data Radiology results: report reviewed Single live intrauterine gestation is present. Mean crown-rump length is 5.3 cm corresponding to a 12 week 0 day old fetus. Disposition Clinical Impression: 12 weeks gestation of , Fall Disposition: HOME SELF-CARE Condition: Good Instructions (If sedation given, give patient instructions): Fall Prevention (ED) Additional Instructions: Follow-up with [facility]. Return to emergency department if any alarming signs or symptoms occur. Prescriptions: Pnv,Calcium 72/Iron/Folic Acid [ Plus Tablet] 1 each PO DAILY #30 tablet Iee-Nxvi-Xeodg Acid [-U Capsule (formulary)] 1 cap PO DAILY #30 cap Is patient prescribed a controlled substance at d/c from ED?: No Referrals: None,Stated [Primary Care Provider] - 1-2 days Time of Disposition: 15:58
[2019-08-24 15:10] LABS: Appearance,Urine Clear (Clear); Bilirubin,Urine Negative (Negative); Blood,Urine Small (Negative); Color,Urine Yellow; Glucose,Urine (UA) Negative (Negative); Ketones,Urine Negative (Negative); Leukocyte Esterase,Urine Trace (Negative); Mucus,Urine Few /hpf; Nitrite,Urine Negative (Negative); PH, Urine 5.5 (5.0-8.0); Protein,Urine Negative (Negative); RBC,Urine 1 /hpf (0-5); Specific Gravity,Urine 1.023 (1.001-1.035); Squamous Epithelial Cell,Urine 3 /hpf (0-4); Urobilinogen,Urine <2.0 mg/dL (<2.0); WBC,Urine 3 /hpf (0-5)
--- NOTE | 2019-08-24 15:42 | US ---
EXAMINATION TYPE: Transabdominal DATE OF EXAM: 08/24/2019 3:29 PM COMPARISON: NONE CLINICAL HISTORY: fall, 11 weeks , spotting. EXAM PERFORMED: Transabdominal (TA) EXAM MEASUREMENTS: GESTATIONAL AGE / DATING Physician Established: Not yet established Dates by LMP: 05/28/2019 (12 weeks/4 days) EDC: 03/03/2020 Dates by First Scan: No previous this is first scan Dates by Current Scan for: (12 weeks/0 days) EDC: 03/07/2020 MATERNAL ANATOMY Uterus: 11.1 x 9.1 x 10.3 cm Right Ovary: 3.5 x 3.0 x 2.0 cm Left Ovary: not identified Post CDS / Adnexa: wnl Presence of free fluid: no free fluid Presence of corpus luteal cyst: 1.9 x 1.4 x 2.3 cm cyst on right ovary. Presence of subchorionic bleed: hypoechoic area adjacent to sac measures 2.6 x 1.2 x 1.8 cm. GESTATION / SURVEY CRL: 5.3 cm (12 weeks/0 days) Yolk Sac (normal less than 6mm): 0.5 cm Heart Rate: 155 bpm Rhythm: Normal IUP: Viable IUP Date of LMP: late Apr/ early May per patient. Single live intrauterine gestation is present with gestational sac, yolk sac, pole are seen. No free fluid in pelvic cul-de-sac. Adjacent to gestational sac there are small to tiny 2.6 x 1.0 x 1.8 cm curvilinear fluid collection marked for sentinel study could reflect small subchorionic hemorrhag e or implantation bleed. Right ovary is seen. Left ovary is not identified. Right ovary has 2.3 cm cystic lesion suspicious fo r corpus luteal cyst. IMPRESSION: Single live intrauterine gestation is present, mean crown-rump length is 5.3 cm correspon ding to a 12 week 0 day old fetus.
[2019-08-24 16:12] VITALS: RESP 20
[2019-08-24 16:13] VITALS: BP 118/72; PULSE 73
== END 2019-08-24 16:13 | disposition home or self-care (01) ==
LOC: EC 13:11
DX: O99.89 Other specified diseases and conditions complicating pregnancy, childbirth and the puerperium (principal); R10.31 Right lower quadrant pain; Z67.40 Type O blood, Rh positive; Z88.0 Allergy status to penicillin; Z88.1 Allergy status to other antibiotic agents; Z88.8 Allergy status to other drugs, medicaments and biological substances; W01.0XXA Fall on same level from slipping, tripping and stumbling without subsequent striking against object, initial encounter; Z3A.12 12 weeks gestation of pregnancy
CPT/HCPCS: 36415; 76801; 81001; 85025; 99284